=== PATIENT | female | born 1960 | race Caucasian/White ===

== ENCOUNTER 2024-06-04 09:18 | Day surgery (SDC) | payer OTHER, SELFPAY ==
[2024-06-04] VITALS (18 sets, daily range): BP systolic 101–157; BP diastolic 66–95
[2024-06-04] MEDS: LOW STRENGTH ASPIRIN 81 MG PO (10:04)
--- NOTE | 2024-06-04 18:19 | ITS.CL.PN ---
[facility] - Procedure Note
Procedure
Procedure Note:
CARDIAC CATHETERIZATION REPORT
Date of Procedure: 06/04/24
Referring: Dr. Ernst Summers MD
Indication: Anginal chest pain, positive cardiac stress test
PROCEDURE(S)
1. left heart catheterization
2. coronary angiography
ACCESS: 6F right radial artery (closure: radial band)
CATHETERS
1. 6F AL1 (JR4 and AR1 too small, AL1 fit but large, AR2 may also work)
2. 6F JL3.5
MODERATE SEDATION: 30 minutes of moderate sedation was utilized. An independent medical scientific liaison was present to assist with and help manage the patient's level of consciousness and physiologic status.
HEMODYNAMIC DATA
LV 145/12 (EDP 23) mmHg
AO 131/78 (mean 102) mmHg
CORONARY ANGIOGRAPHY
Dominance: Right
LM: Long, normal
LAD: Large vessel giving rise to a moderate caliber D1, small D2, and small D3 before wrapping around the apex. There is no coronary artery disease.
LCx: Moderate caliber vessel giving rise to a moderate caliber OM1 and small LPL branch. There are trivial luminal irregularities only.
RCA: Moderate caliber vessel with anterior takeoff giving rise to a moderate caliber RPDA. There are trivial luminal irregularities only.
RADIATION: dose 444 mGy; DAP 30.2 Gy*cm2; fluoroscopy time 13.3 min
CONCLUSIONS
1. Trivial luminal irregularities only in a right dominant system
2. Moderately elevated LV filling pressure and no aortic stenosis
RECOMMENDATIONS
1. Primary prevention of coronary artery disease
2. Workup for etiology of chest pain and shortness of breath not related to epicardial coronary artery disease
Copy to: Dr. Alex Summers MD (music publicist); Dr. Isreal Cuevas MD (PCP)
Signed: Hernán Douglass MD, PhD
== END 2024-06-04 16:10 | disposition home or self-care (01) ==
LOC: CATH 09:18
PROVIDERS: ATTENDING PHYSICIAN Student in an Organized Health Care Education/Training Program; FAMILY PHYSICIAN Internal Medicine; OTHER PHYSICIAN Internal Medicine Cardiovascular Disease
DX: R07.9 Chest pain, unspecified (principal); R06.02 Shortness of breath
CPT/HCPCS: 99152; 99153; 93005; 93458; C1894; Q9967